=== PATIENT | female | born 1945 | race Caucasian/White ===

== ENCOUNTER → 2016-05-24 12:25 | Outpatient (CLI) | payer MEDICARE, BC ==
[2014-12-20 12:40] VITALS: BMI 43.8
[~2016-05-24 12:25] MED LIST: AVONEX30 MCG/0.5 IM; DITROPAN X10 MG/BOTT PO; EPITOL200 MG PO; GLUCOPHAGE1000 MG PO; K-TAB10 MEQ PO; MODURETIC 5/501 TAB PO; NORVASC5 MG PO; PRAVACHOL40 MG PO; PRINIVIL20 MG PO; SYNTHROID112 MCG PO; TENORMIN50 MG PO
== END | disposition home or self-care (01) ==
LOC: D.RAD 12:25
DX: M17.11 Unilateral primary osteoarthritis, right knee (principal)

== ENCOUNTER → 2017-03-08 09:39 | Outpatient (CLI) | payer MEDICARE, BC ==
[2014-12-20 12:40] VITALS: BMI 43.8
== END | disposition home or self-care (01) ==
LOC: D.MRI 09:39
DX: G35 Multiple sclerosis (principal); R26.9 Unspecified abnormalities of gait and mobility

== ENCOUNTER → 2017-09-30 15:58 | Outpatient (CLI) | payer MEDICARE, BC ==
[2014-12-20 12:40] VITALS: BMI 43.8
== END | disposition home or self-care (01) ==
LOC: D.LABREF 15:58
DX: L72.0 Epidermal cyst (principal)